=== PATIENT | male | born 1970 | race Caucasian/White ===

== ENCOUNTER 2021-02-02 19:14 | Emergency (ER) | payer SELFPAY ==
[~2021-02-02] VITALS: Ht 182.9 cm; Wt 100.0 kg
[2021-02-02 19:19] VITALS: BP 150/96
== END 2021-02-02 21:43 | disposition left against medical advice (07) ==
LOC: EMS 19:18
DX: R10.30 Lower abdominal pain, unspecified (principal); Z53.21 Procedure and treatment not carried out due to patient leaving prior to being seen by health care provider